=== PATIENT | female | born 1980 | race Caucasian/White ===

== ENCOUNTER 2021-08-01 14:58 | Emergency (ER) | payer MEDICAID ==
[~2021-08-01] VITALS: Ht 172.7 cm; Wt 55.0 kg
[2021-08-01 15:22] VITALS: BP 128/74
[2021-08-01] MEDS ORDERED: PREDNISONE 20MG TABLET PO STA (15:25)
[2021-08-01] MEDS ORDERED: ALBUTEROL (0.083%) 2.5MG/3ML NEB HHN STA (15:25)
[2021-08-01] MEDS ORDERED: ALBU18HF2 IH (17:00)
[2021-08-01] MEDS ORDERED: P50 MT (17:00)
== END 2021-08-01 17:44 | disposition home or self-care (01) ==
LOC: ER 14:58
DX: J45.901 Unspecified asthma with (acute) exacerbation (principal)
CPT/HCPCS: 71045; 81025; 94640; 99283; J7512; Z7610

== ENCOUNTER 2021-08-02 12:53 | Emergency (ER) | payer MEDICAID ==
[~2021-08-02] VITALS: Ht 154.9 cm; Wt 62.0 kg
[~2021-08-02 12:53] MED LIST: ALBU18HF2 IH; P50 MT
[2021-08-02 18:22] VITALS: BP 138/83
== END 2021-08-02 18:30 | disposition home or self-care (01) ==
LOC: ER 12:53
DX: Z20.822 Contact with and (suspected) exposure to COVID-19 (principal)
CPT/HCPCS: 87426; 99283

== ENCOUNTER 2022-04-09 01:52 | Emergency (ER) | payer MEDICAID ==
[~2022-04-09] VITALS: Ht 162.6 cm; Wt 61.0 kg
[2022-04-09 04:30] VITALS: BP 103/69
== END 2022-04-09 05:20 | disposition left against medical advice (07) ==
LOC: ER 02:06
DX: Z53.21 Procedure and treatment not carried out due to patient leaving prior to being seen by health care provider (principal)
CPT/HCPCS: 81025; 99284